=== PATIENT | female | born 2005 | race Hispanic/Latino ===

== ENCOUNTER 2025-02-09 21:55 | Emergency (ER) | payer OTHER ==
[~2025-02-09] VITALS: Ht 160 cm; Wt 69.4 kg
[2025-02-09] MEDS: ONDANSETRON HCL 4 MG ORAL DISINTEGRATING TAB PO ONE (23:02)
[2025-02-09] MEDS ORDERED: ONDANSETRON HCL 4 MG ORAL DISINTEGRATING TAB PO ONE (23:45)
[2025-02-10] MEDS: ONDANSETRON HCL INJ 2MG/ML 2ML 2 MG/ML VIAL IV STA (00:13)
[2025-02-10] MEDS: FAMOTIDINE 20 MG/2 ML VIAL IV STA (00:13)
[2025-02-10] MEDS: LIDOCAINE VISC 2% SOLN 15 ML UDC PO ONE (00:13)
[2025-02-10 00:40] VITALS: PULSE 90; RESP 18; TEMP 98.2
[2025-02-10] MEDS: SODIUM CHLORIDE 0.9% 1000ML 1,000 ML IV ONE (01:04)
[2025-02-10 06:46] VITALS: BP 123/64; O2SAT 99
== END 2025-02-10 01:58 | disposition home or self-care (01) ==
LOC: FSED 22:17
DX: O21.1 Hyperemesis gravidarum with metabolic disturbance (principal); K29.70 Gastritis, unspecified, without bleeding
CPT/HCPCS: 80048; 81003; 81025; 85025; 99284; J1308; J2405; J7030; Q0162